=== PATIENT | female | born 1980 | race Caucasian/White ===

== ENCOUNTER → 2020-07-05 | Outpatient (CLI) | payer OTHER ==
[~2020-07-05] MED LIST: CITALOPRAM HBR40 MG PO; GABAPENTIN800 M1 PO
== END ==
LOC: LAB 14:12
PROVIDERS: ATTEND Orthopaedic Surgery Hand Surgery
DX: Z01.812 Encounter for preprocedural laboratory examination (principal); Z20.828 Contact with and (suspected) exposure to other viral communicable diseases

== ENCOUNTER 2020-07-08 13:09 | Day surgery (SDC) | payer OTHER ==
[~2020-07-08] VITALS: Ht 157.5 cm; Wt 72.6 kg
[2020-07-08 13:46] VITALS: BP 105/67
[2020-07-08 16:39] VITALS: BP 105/67
--- NOTE | 2020-07-14 14:49 | O ---
[facility] [place] [address] OPERATIVE REPORT Name: JANA CORREA Room #: DEP [facility].#: [id number] Admission: 07/08/20 Attend Phys: Jennifer Orantes, Discharge: 07/08/20 Date of : 84 Report #: [id number] THIS REPORT FOR: cc: CHERELLE WANG Physician not on staff Jennifer Orantes MD ~ CC: CHERELLE WANG Physician staff Jennifer Orantes DATE OF SERVICE: 07/08/2020 PREOPERATIVE DIAGNOSIS: Left carpal tunnel syndrome. POSTOPERATIVE DIAGNOSIS: Left carpal tunnel syndrome. PROCEDURE PERFORMED: Left endoscopic carpal tunnel release. SURGEON: Jennifer Orantes MD ANESTHESIA: General mask anesthesia. ESTIMATED BLOOD LOSS: Minimal. TOURNIQUET TIME: Approximately 11 minutes. COMPLICATIONS: None. CONDITION: Stable. DISPOSITION: Recovery room. INDICATIONS: The patient is a 39-year-old female with the above-mentioned diagnosis. She elects for operative treatment. The risks, benefits, alternatives and complications were discussed including but not limited to infection, damage to vessels or nerves, incomplete relief or worsening of any symptoms. Informed consent was obtained. The correct extremity was identified and labeled by myself after verbal confirmation of the patient as well as visual confirmation and signed informed consent. DESCRIPTION OF PROCEDURE: The patient was brought back to the operating room and placed on the operating table in supine position. She received preoperative antibiotics. Tourniquet was placed over padding on the patient's left extremity. Left upper extremity was sterilely prepped and draped in the usual fashion. Final timeout was taken to verify correct patient, operative procedure, operative site, all concurred. The arm was elevated, exsanguinated [facility] [address] [place] [address] OPERATIVE REPORT Name: CORREAJANA Tatiana Room #: [facility].#: [id number] Admission: 07/08/20 Attend Phys: Jennifer Orantes, Discharge: 07/08/20 Date of : 84 Report #: [id number] and tourniquet inflated. The entire procedure was done with the aid of 3.5 loupe magnification. Next, a transverse incision was made a few millimeters proximal to the distal wrist crease in line with ulnar border, palmaris longus tendon. Dissection was carried down through subcutaneous tissue with tenotomy scissors. The antebrachial fascia was identified and incised. It was then incised for a few millimeters proximal. Next, an oblique incision was made distal to the hook of hamate in line with the ring finger. The fascia was carefully incised. Next, a Caliente elevator was placed through the carpal tunnel and any synovial tissue was elevated off the undersurface of the transverse carpal ligament. Next, a blunt trocar and cannula was inserted with the wrist in maximal extension and digital pressure distally, the blunt trocar was removed. The camera was inserted and I was able to see the nice transverse fibers of the transverse carpal ligament. ___ transverse carpal ligament were easily identified ____ was brought in distally and the transverse carpal ligament was transected distally. Next, a camera was inserted distally and the transverse carpal ligament was transected proximally. Next, the camera and cannula were withdrawn and visualized the cut ends of the transverse carpal ligament. Next, each wound was explored. The release was all the way from the antebrachial fascia in the forearm all the way through the fat in the palm. The nerve looked to be in excellent condition. A Caliente elevator was placed through the carpal tunnel and no remnants of the transverse carpal ligament remained. The wounds were thoroughly irrigated. Skin was closed with 4-0 nylon suture. Wound was dressed with Adaptic and sterile gauze. She was placed in a bulky dressing. All fingers were pink with brisk capillary refill at the conclusion of case after deflation of tourniquet. All sponge and needle counts were correct. The patient was transferred to the postoperative recovery room in stable condition. <ELECTRONICALLY SIGNED> By: Jennifer Orantes MD 07/14/20 [id number] Jennifer Orantes MD /nt
== END 2020-07-08 17:15 | disposition home or self-care (01) ==
LOC: OR 13:09 → TBA 13:10 → OR 13:37
PROVIDERS: ATTEND Orthopaedic Surgery Hand Surgery
DX: G56.02 Carpal tunnel syndrome, left upper limb (principal); F17.210 Nicotine dependence, cigarettes, uncomplicated; F32.9 Major depressive disorder, single episode, unspecified; Z72.89 Other problems related to lifestyle; Z98.51 Tubal ligation status; Z90.710 Acquired absence of both cervix and uterus; Z98.890 Other specified postprocedural states
CPT/HCPCS: 50010; 50101; 50386; 56526; 56969; 57006; 57091; 57178; 62110; 62900; 70005

== ENCOUNTER → 2020-07-19 | Outpatient (CLI) | payer OTHER | LOC: LAB 11:40 | PROVIDERS: ATTEND Orthopaedic Surgery Hand Surgery | DX: Z01.812 Encounter for preprocedural laboratory examination (principal); Z20.828 Contact with and (suspected) exposure to other viral communicable diseases ==